=== PATIENT | male | born 1950 | race Caucasian/White ===

== ENCOUNTER 2016-07-07 12:40 | Inpatient (IN) | payer OTHER ==
[2016-07-07] MEDS ORDERED: IOPAMIDOL 370 (76%) IV.SOLN 150 ML IV ONE (12:41)
[2016-07-07 13:22] LABS: ABSOLUTE NEUTROPHIL COUNT 4.8 K/mm3 (1.8-7.7); BASO # 0.1 K/mm3 (0.0-0.2); BASO % 0.7 % (0.2-1.0); EOS # 0.2 (0.0-0.5); EOS % 2.8 % (0.9-2.9); HEMATOCRIT 47.7 % (32.0-52.0); HEMOGLOBIN 15.8 gm/l (14.0-18.0); IMM NEUT% 0.3 % (0-1); LYMPH # 1.8 (1.0-4.8); LYMPH % 24.1 % (15-45); MEAN CELL VOLUME 92.8 fl (80.0-94.0); MEAN CORPUSCULAR HEMOGLOBIN 30.7 pg (27.0-31.0); MEAN CORPUSCULAR HGB CONC 33.1 g/dl (33.0-37.0); MEAN PLATELET VOLUME 9.2 fl (7.4-10.4); MONO # 0.7 (0.0-0.8); MONO % 8.9 % (4-12); NEUT % 63.2 % (43-75); PLATELET COUNT 365 K/mm3 (130-400); RED CELL DISTRIBUTION WIDTH 12.5 % (11.5-14.5)
[2016-07-07] MEDS ORDERED: HYDROMORPHONE HCL 1 MG/ML SYRINGE ONE ×2 (13:27→15:15)
[2016-07-07] MEDS ORDERED: ONDANSETRON 4 MG/2ML 2 ML VIAL ONE (13:27)
[2016-07-07 13:32] LABS: ALB/GLOB RATIO 0.9 (>1.0); ALBUMIN 3.6 gm/dL (3.5-5.7); CALCIUM 9.8 mg/dL (8.6-10.3)
[2016-07-07] MEDS ORDERED: METOCLOPRAMIDE HCL 5 MG/ML 2ML VIAL ONE (13:57)
--- NOTE | 2016-07-07 14:39 | CT ---
Exam: CT abdomen and pelvis with contrast COMPARISON: None INDICATION: Diffuse abdominal pain radiating bilaterally to the back with abdominal distention since 6:00 am. TECHNIQUE: CT examination of the abdomen and pelvis was obtained following the administration of 125 mL Isovue-370 intravenous contrast. Findings: Stomach is markedly distended, and there is a small amount of fluid within the distal esophagus reflecting either reflux or stasis. There are dilated loops of small bowel which measure up to 3.8 cm. The discrete transition point is not identified although the mid to distal ileum is relatively decompressed. There is no pneumatosis or portal venous gas. There is no free air or free intraperitoneal fluid. Moderate amount of well-formed stool seen within the colon. There is mild colonic diverticulosis without evidence of diverticulitis. The appendix is normal. Urinary bladder unremarkable. There is no pelvic lymphadenopathy or fluid collection. There is occlusion/complete thrombus formation within the abdominal aorta starting just below level the renal arteries. There is a bilobed infrarenal abdominal aortic aneurysm which measures up to 3.7 cm in diameter. The bilateral common iliac arteries are heavily calcified and diminutive in size reflecting the chronic occlusion. There is reconstitution of flow at the level of the common femoral arteries bilaterally, although dense atheromatous plaques are noted. Gallbladder is present and within normal limits. The liver, spleen, pancreas and adrenal glands are unremarkable. There is a subcentimeter low-density lesion in the upper pole of the left kidney which is too small to characterize but is statistically likely to reflect a cyst. Kidneys otherwise unremarkable and there is no hydronephrosis. There is a 10 mm nodule within the right lung base which is of uncertain chronicity given lack of comparisons. Mild dependent atelectasis is seen within the left lung base and there is minor scarring within the right middle lobe. There is no pleural effusion. No worrisome lytic or blastic osseous lesion is identified. Focally prominent degenerative disc disease is noted at L4-5. IMPRESSION: 1. Developing or partial small bowel obstruction, with marked distention of the stomach and proximal small bowel measuring up to 3.8 cm. Discrete transition point is not seen and etiology of the obstruction is uncertain. There is no free air or free fluid. 2. Chronic occlusion/thrombus formation of the abdominal aorta below level the renal arteries. There is reconstitution of flow at the level of the common femoral arteries. 3. 10 mm nodule within the right lower lobe which is of uncertain chronicity given lack of comparisons. Recommend nonemergent unenhanced CT examination of the chest to evaluate for additional nodules which will determine follow-up interval. Findings were discussed with Dr. Walton 1436 hours 07/07/2016.
[2016-07-07] MEDS ORDERED: LIDOCAINE 2% UROJECT 10 ML ONE (15:13)
[2016-07-07] MEDS ORDERED: SODIUM CHLORIDE 0.9% 1,000 ML ONE (17:21)
[2016-07-07] MEDS ORDERED: PUMP TUBING ONE (17:21)
[2016-07-07 17:33] VITALS: BMI 23.4
[2016-07-07] MEDS ORDERED: SODIUM CHLORIDE 0.9% 1,000 ML IV SCH (17:35)
[2016-07-07] MEDS ORDERED: ONDANSETRON 4 MG/2ML 2 ML VIAL IV PRN ×2 (18:19→19:30)
[2016-07-07] MEDS: HYDROMORPHONE HCL 1 MG/ML SYRINGE IV PRN ×3 (18:23→22:55)
[2016-07-07] MEDS ORDERED: BLISTEX LIPSTICK 1 EACH TP PRN (19:15)
[2016-07-07] MEDS ORDERED: BISACODYL 10 MG SUP PR PRN (19:15)
[2016-07-07] MEDS ORDERED: HYDROMORPHONE HCL 1 MG/ML SYRINGE IV PRN (19:30)
[2016-07-07] MEDS: MENTHOL/CETYLPYRD 1 EACH LOZENGE PO PRN (20:16)
[2016-07-07] MEDS: ENOXAPARIN SODIUM 40 MG/0.4 ML SYRINGE SUB-Q SCH (20:17)
[2016-07-07 20:32] LABS: SPECIFIC GRAVITY 1.015 (1.001-1.030); URINE BILIRUBIN NEGATIVE (NEGATIVE); URINE BLOOD NEGATIVE (NEGATIVE); URINE GLUCOSE (UA) NEGATIVE (NEGATIVE); URINE LEUKOCYTE ESTERASE NEGATIVE (NEGATIVE); URINE NITRITE NEGATIVE (NEGATIVE); URINE PROTEIN 3+ (NEGATIVE); URINE UROBILINOGEN NORMAL (0-1 mg/dl)
[2016-07-07] MEDS: ALBUTEROL/IPRATROPIUM 2.5/0.5 MG 3 ML/EACH DOSE NEB SCH (20:33)
[2016-07-07 20:34] LABS: URINE APPEARANCE CLEAR; URINE COLOR AMBER
[2016-07-07 20:40] LABS: URINE EPITHELIAL CELLS 0-1 /hpf
[2016-07-07 20:41] LABS: URINE BACTERIA FEW
[2016-07-07] MEDS: NICOTINE POLACRILEX 2 MG LOZENGE PO PRN (21:33)
[2016-07-07] MEDS: PANTOPRAZOLE SODIUM 40 MG VIAL IV SCH (21:34)
[2016-07-07] MEDS: BENZOCAINE PO PRN (21:38)
[2016-07-07] MEDS: BUTAMBEN PO PRN (21:38)
[2016-07-07] MEDS: TETRACAINE PO PRN (21:38)
[2016-07-07] MEDS: BOT PO PRN (21:38)
[2016-07-08] MEDS: SODIUM CHLORIDE 0.9% 1,000 ML IV SCH ×5 (00:33→17:02)
[2016-07-08] MEDS: NICOTINE POLACRILEX 2 MG LOZENGE PO PRN ×4 (01:31→21:20)
[2016-07-08] MEDS: MENTHOL/CETYLPYRD 1 EACH LOZENGE PO PRN ×6 (01:32→17:45)
[2016-07-08] MEDS: HYDROMORPHONE HCL 1 MG/ML SYRINGE IV PRN ×2 (01:39→02:02)
[2016-07-08] MEDS: BUTAMBEN PO PRN ×4 (04:08→17:49)
[2016-07-08] MEDS: BOT PO PRN ×4 (04:08→17:49)
[2016-07-08] MEDS: BENZOCAINE PO PRN ×4 (04:08→17:49)
[2016-07-08] MEDS: TETRACAINE PO PRN ×4 (04:08→17:49)
[2016-07-08] MEDS: HYDROMORPHONE HCL 2 MG/ML SYRINGE IV PRN ×5 (05:34→17:45)
--- NOTE | 2016-07-08 06:25 | HP ---
Luke Lopez ADMIT DATE: 07/07/2016 CHIEF COMPLAINT: Abdominal distention. HISTORY OF PRESENT ILLNESS: Luke is a 66-year-old homeless male. He apparently was in the hospital up at [facility] for close to a month by his report. He was just discharged from there within the last week and was sent to [facility]. He was apparently stable there for the next couple of days, however, today he had onset of abdominal distention and pain. He was brought to the emergency room and in the emergency room he was worked up and found to have evidence of an early small bowel obstruction. He has not had this in the past. He has had no recent surgeries. No fevers, no chills, no headache, no visual disturbance. No difficulty swallowing. No chest pain. He does feel short of breath all the time. He feels like he is about at his baseline. No new extremity weakness, numbness, tingling, or swelling. PAST MEDICAL HISTORY: Largely unknown. He has never been seen here at our facility. I have minimal records from [facility]. They indicate that he has the followin. Chronic obstructive pulmonary disease. 2. Atrial fibrillation. 3. History of cerebrovascular accidents, not otherwise specified. 4. Chronic abdominal aortic aneurysm. 5. 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 6. Chronic left and right foot ulcerations. 7. Chronic low back pain. 8. Coronary artery disease. 9. Diabetes. PAST SURGICAL HISTORY: He tells me he has had cataracts, some type of a nose surgery, neck surgeries four years ago or so, and angiogram in the last couple of years. ALLERGIES: PENICILLIN. CURRENT MEDICATIONS: Unknown. SOCIAL HISTORY: He is normally homeless and stays in the [facility]. He does have a daughter in [place] and he is very evasive when I ask about her. I do not know the nature of their relationship. He has been four times. He drinks alcohol daily at a baseline, though he has had none since he was admitted to the hospital over a month ago at [facility]. No history of withdraw. He does have a 50 to 70 pack year history of smoking and does continue to smoke. FAMILY HISTORY: Unknown as he is adopted. OBJECTIVE: VITAL SIGNS: Temperature 98.0, pulse 90, blood pressure 184/94, respirations 17, O2 sat 94% on 4 liters. GENERAL: This is a dishelved appearing elderly male. He is alert and calm. He is in no acute distress. HEENT: Normocephalic, atraumatic. Tympanic membranes are clear. Nasogastric tube is in place. Orophyarnx with poor dentition. NECK: Supple. No jugular venous distention. LUNGS: He has distant sounds, but no wheezes, rales, or rhonchi. He does have some loose upper respiratory tones. HEART: Regular rate and rhythm. ABDOMEN: Moderately distended. He does not really have any tenderness to palpation. Bowel tones are quiet. No rebound or guarding. EXTREMITIES: Trace edema of the bilateral lower extremities. LABORATORY: CBC with a white count of 7.6, hemoglobin 15.8, hematocrit 47.7, platelets 365. Chemistry panel, sodium of 138, potassium 4.4, chloride 99, carbon dioxide 32, BUN 14, creatinine 0.8, glucose 141. Total bilirubin is 0.3, AST 15, ALT 17, alk phos 74, lipase of 10. Urinalysis is pending. DIAGNOSTICS: Abdominal and pelvis CT scan performed in the emergency room shows clear lung bases. He does have evidence of a small bowel obstruction with distention of the stomach and proximal small bowel, no free air or fluid, chronic abdominal aortic aneurysm is noted. ASSESSMENT: 1. Partial small bowel obstruction, acute. 2. Multiple other medical problems including baseline chronic obstructive pulmonary disease, atrial fibrillation, chronic aortic aneurysm, coronary artery disease, and diabetes. PLAN: He is admitted to the floor. Nasogastric tube has already been placed, we will continue this on low intermittent suction. We will continue him on supportive care otherwise with IV fluid, etc. We will attempt to get further records from [facility] and fill out his history as well as his medication list from [facility]. Further care is dictated by clinical course. JOB: [id number]
[2016-07-08] MEDS: ALBUTEROL NEB 2.5 MG/3 ML VIAL.NEB NEB PRN (06:27)
[2016-07-08 06:48] LABS: ABSOLUTE NEUTROPHIL COUNT 4.1 K/mm3 (1.8-7.7); BASO # 0.1 K/mm3 (0.0-0.2); BASO % 0.7 % (0.2-1.0); EOS # 0.3 (0.0-0.5); EOS % 4.7 % (0.9-2.9); HEMOGLOBIN 14.2 gm/l (14.0-18.0); IMM NEUT% 0.1 % (0-1); LYMPH # 1.6 (1.0-4.8); LYMPH % 23.4 % (15-45); MEAN CELL VOLUME 93.9 fl (80.0-94.0); MEAN PLATELET VOLUME 8.9 fl (7.4-10.4); MONO # 0.8 (0.0-0.8); MONO % 11.1 % (4-12); PLATELET COUNT 276 K/mm3 (130-400); RED CELL DISTRIBUTION WIDTH 12.7 % (11.5-14.5)
[2016-07-08 07:06] LABS: ALB/GLOB RATIO 1.1 (>1.0); ALBUMIN 3.1 gm/dL (3.5-5.7); CALCIUM 8.6 mg/dL (8.6-10.3)
--- NOTE | 2016-07-08 08:46 | RAD ---
ABDOMEN FLAT AND UPRIGHT HISTORY: Small bowel obstruction. COMPARISONS: CT examination of 07/07/2016. FINDINGS: Supine and upright views of the abdomen were obtained demonstrating air scattered throughout large and small bowel without significant dilatation. The abdominal bowel gas pattern is currently nonspecific. No definite findings of free intraperitoneal air are observed. There appears to be an indwelling nasogastric tube with the tip projecting at the level of the diaphragmatic contour, likely at the gastroesophageal junction. There are severe lumbar degenerative changes noted. Contrast is seen within the bladder from the prior CT examination. IMPRESSION: 1. A current nonspecific abdominal bowel gas pattern. No findings of free intraperitoneal air is observed. 2. An indwelling nasogastric tube with tip projecting at the expected location of the gastroesophageal junction. 3. Lumbar discogenic degenerative changes. 4. Contrast within the bladder from prior CT examination.
[2016-07-08] MEDS: ALBUTEROL/IPRATROPIUM 2.5/0.5 MG 3 ML/EACH DOSE NEB SCH ×4 (08:53→20:32)
[2016-07-08] MEDS: METOPROLOL TARTRATE 1 MG/ML 5ML VIAL IV SCH ×2 (12:01→17:37)
--- NOTE | 2016-07-08 13:21 | PDOC43 ---
- Subjective Chief Complaint: Abd Distension, SOB More SOB this AM. Abd better. Subjective: Reports Pain Tolerable, Reports Flatus, Denies Bowel Movement, Denies Chest Pain, Denies Abdominal Pain, Denies Nausea, Denies Vomiting, Denies Fever, Denies Chills - Objective Vital Signs Temperature 97.7 F 07/08/16 11:58 Pulse Rate 84 07/08/16 11:58 Respiratory Rate 16 07/08/16 11:58 Blood Pressure 155/69 07/08/16 11:58 O2 Saturation by Pulse Oximetry 90 07/08/16 11:58 Oxygen Delivery Method Nasal Cannula Oxygen Flow Rate 5 Intake and Output 07/07/16 07/08/16 07/09/16 06:59 06:59 06:59 Intake Total 1534 Output Total 1075 Balance 459 Tubes/Drains Output: Tubes and Drains Output NG/OG Output 125 General: Alert, Oriented x3, Cooperative, No Acute Distress HEENT: Atraumatic Lungs: Other (Coarse sounds all romero B. Poor air movement noted.) Cardiovascular: Regular Rate and Rhythm Abdomen: Firm, Hypoactive Bowel Sounds, Mild Distention, No Rebounding, No Involuntary Guarding Extremities: Normal Pulses Wound: Other (Multiple shallow wounds/abrasions/ulcers to dorsum of B feet/ toes. No evidence of infection.) Laboratory 07/08/16 06:15 07/08/16 06:15 Current Medications: Current meds reviewed in EMR. - Problems: Assessment/Plan (1) SBO (small bowel obstruction) Status: AcuteAssessment/Plan: Improved this AM. Less NGT output- will clamp. Some flatus. No pain. No N/V. Repeat films in AM. (2) COPD (chronic obstructive pulmonary disease) Qualifiers: COPD type: unspecified COPD Qualifier Code: (J44.9) Chronic obstructive pulmonary disease, unspecified Status: AcuteAssessment/Plan: Increased O2 requirement and subjective SOB this AM. Exam c/w COPD exacerbation. Will check CXR, start steroids and azithro and con't nebs. (3) SVT (supraventricular tachycardia) Status: AcuteAssessment/Plan: Asymptomatic run of SVT this AM. Will tx with IV metoprolol and follow. Echo done at last month with nl EF and no WMA's by report. (4) Abrasion of foot without infection Status: ChronicAssessment/Plan: Wound care. (5) HTN (hypertension) Qualifiers: Hypertension type: essential hypertension Qualifier Code: (I10) Essential (primary) hypertension Status: ChronicAssessment/Plan: Metoprolol as above. (6) AAA (abdominal aortic aneurysm) Qualifiers: Presence of rupture: without rupture Qualifier Code: (I71.4) Abdominal aortic aneurysm, without rupture Status: ChronicAssessment/Plan: Chronic at baseline. (7) Chronic low back pain Qualifiers: Back pain laterality: unspecified Sciatica presence: unspecified whether sciatica present Qualifier Code: (M54.5) Low back pain Status: ChronicAssessment/Plan: Chronic pain at baseline. Con't with IV dilaudid until able to resume usual po regimen. (8) ETOHism Status: ChronicAssessment/Plan: In remission since admit to last month. VTE Prophylaxis: Lovenox. Disposition: Unknown. Pt is homeless and most likely won't qualify for SNF.
[2016-07-08] MEDS: METHYLPRED SOD SUCCINATE 40 MG VIAL IV SCH ×2 (13:56→19:27)
[2016-07-08] MEDS: AZITHROMYCIN 500 MG in SODIUM CHLORIDE 0.9% 250 ML IV SCH (14:07)
--- NOTE | 2016-07-08 14:08 | RAD ---
CHEST-AP BEDSIDE COMPARISON: None HISTORY: Hypoxia. FINDINGS: Views: Frontal chest. Lungs: The lungs are clear. Heart and vessels: Normal Trachea and bronchi: Normal Mediastinum and sophia: Normal Costophrenic sulci: Normal Chest wall and bones: Normal Upper abdomen: Normal. Support equipment: NG tube terminates of the left hemidiaphragm. IMPRESSION: Negative one view chest.
[2016-07-08] MEDS ORDERED: PUMP TUBING ONE (14:14)
[2016-07-08] MEDS ORDERED: CALCIUM CARBONATE 500 MG TAB.CHEW PO PRN (18:20)
[2016-07-08] MEDS ORDERED: ALBUTEROL NEB 2.5 MG/3 ML VIAL.NEB NEB PRN (18:20)
[2016-07-08] MEDS ORDERED: SIMETHICONE 80 MG TAB.CHEW PO PRN (18:20)
[2016-07-08] MEDS ORDERED: IV START KIT ONE ×2 (18:27→21:31)
[2016-07-08] MEDS ORDERED: IOPAMIDOL 370 (76%) 100 ML VIAL IV ONE (19:06)
[2016-07-08] MEDS: ENOXAPARIN SODIUM 40 MG/0.4 ML SYRINGE SUB-Q SCH (19:27)
--- NOTE | 2016-07-08 19:34 | CT ---
EXAMINATION: CT angiography of the thorax.CTA CHEST FOR PE INDICATION: Hypoxemia COMPARISON: None. TECHNIQUE: Helical scan mode CT of the Thorax after uneventful intravenous contrast administration of 80 ml of Isovue-370. Imaging device: [employer] multidetector CT scan. Helically acquired stacked images were reviewed in the axial, sagittal and coronal planes. Additional 3-D postprocessing was performed and reconstructed images were acquired at the [employer] workstation and reviewed as well. FINDINGS: The bolus is of good quality for diagnosis of pulmonary embolism. There is a small focal pulmonary arterial thrombus within the posterior basilar segment of the right lower lobe. The remainder of the pulmonary arteries appear well-opacified. No large occluded segments are detected. After chronic plaquing of the thoracic aorta is noted. There is ectasia with no aneurysmal dilatation or evidence of dissection. Cardiomegaly is evident. There are coronary vascular calcifications. There is no pericardial effusion. The lung parenchyma: There is extensive groundglass opacity with a mosaic appearance within the upper and lower lobes bilaterally. There is inter and intralobular septal thickening with basilar atelectasis. In the right lower lobe anteriorly there is a 1 cm stellate nodule. There are also foci of consolidation/atelectasis within the lung bases as well. Scattered emphysematous changes are noted. Pleural effusion: No significant pleural effusion is identified.: Mediastinum: There is prominent disseminated mediastinal adenopathy. There is a left prominent lymph node measuring 1.6 cm in the paratracheal distribution. There is an AP window lymph node with a short axis dimension of 1.0 cm. There are left hilar lymph nodes with short axis dimension 1.3 cm. Right hilar adenopathy is noted with multiple lymph nodes exhibiting short axis dimensions of greater than 1 cm. No signal in subcarinal adenopathy is identified. Osseus structures: No gross lytic or blastic lesions. Soft tissues: within normal limits Limited evaluation of the abdomen on this arterial phase injection reveals: No acute obstructive or inflammatory changes are identified visualized segments. There is an infrarenal abdominal aortic aneurysm measuring 3.3 cm in AP dimension. There is layering attenuation within the gallbladder raising the question of cholelithiasis. Diverticulosis of the colon is noted. IMPRESSION: Constellation of abnormal nonspecific findings. 1. Small pulmonary embolus posterior basilar segment right lower lobe. 2. Findings which appear to reflect cardiogenic pulmonary edema. Other entities that can give a similar appearance would include interstitial pneumonia, ARDS and pulmonary hemorrhage. There is also apparent basilar atelectasis. 3. Nonspecific mediastinal lymphadenopathy. This raises the question of underlying neoplasm and/or infectious etiology. Other entities that may need to be considered would include sarcoidosis. 4. 9 mm nodular density right lower lung zone. A repeat CT scan following clearing of the above infiltrates is recommended. 5. Atherosclerosis. There is an infrarenal abdominal aortic aneurysm. 6. Cholelithiasis without evidence of gross cholecystitis or biliary obstruction. The findings were uploaded to the electronic medical record for review at approximately 7:35 PM 07/08/2016
[2016-07-08] MEDS ORDERED: TIOTROPIUM BROMIDE 18 MCG IH SCH (20:00)
[2016-07-08] MEDS ORDERED: ENOXAPARIN SODIUM 150 MG/ML SYRINGE SUB-Q SCH (20:15)
[2016-07-08] MEDS ORDERED: ENOXAPARIN SODIUM 100 MG/ML SYRINGE SUB-Q ONE (20:30)
[2016-07-08] MEDS ORDERED: FUROSEMIDE 40 MG/4 ML VIAL IV ONE (20:34)
[2016-07-08] MEDS: PANTOPRAZOLE SODIUM 40 MG VIAL IV SCH (21:18)
[2016-07-08] MEDS: GUAIFENESIN 600 MG TABLET.DR PO SCH (21:18)
[2016-07-08] MEDS: LOVASTATIN 20 MG TABLET PO SCH (21:19)
[2016-07-08] MEDS: LORAZEPAM 0.5 MG TABLET PO PRN (21:19)
[2016-07-08] MEDS: HYDROCODONE/ACETAMINOPHEN 5/325MG TABLET PO PRN (21:19)
[2016-07-08] MEDS: SENNA/DOCUSATE SODIUM 8.6/50 MG EACH TABLET PO SCH (21:19)
[2016-07-08] MEDS: BENZONATATE 100 MG CAPSULE PO SCH (21:20)
[2016-07-08] MEDS: NICOTINE 14 MG PATCH 1 EACH TD SCH (21:20)
[2016-07-08] MEDS: ASPIRIN (UNCOATED) 325 MG TABLET PO SCH (21:20)
[2016-07-08] MEDS ORDERED: SODIUM CHLORIDE 0.9% FLUSH 10 ML ONE (21:30)
[2016-07-08] MEDS: METOPROLOL TARTRATE 25 MG TABLET PO SCH (23:43)
[2016-07-08] MEDS: TIOTROPIUM BROMIDE 18 MCG 5 CAP/INHALER IH SCH (23:44)
[2016-07-09] MEDS: METHYLPRED SOD SUCCINATE 40 MG VIAL IV SCH ×4 (01:21→21:01)
[2016-07-09 06:14] LABS: HEMATOCRIT 43.2 % (32.0-52.0); HEMOGLOBIN 13.7 gm/l (14.0-18.0); MEAN CORPUSCULAR HEMOGLOBIN 30.4 pg (27.0-31.0); MEAN CORPUSCULAR HGB CONC 31.7 g/dl (33.0-37.0); RED CELL DISTRIBUTION WIDTH 12.3 % (11.5-14.5)
[2016-07-09 06:34] LABS: CALCIUM 8.6 mg/dL (8.6-10.3)
[2016-07-09] MEDS: HYDROCODONE/ACETAMINOPHEN 5/325MG TABLET PO PRN ×3 (08:26→21:02)
[2016-07-09] MEDS: BENZONATATE 100 MG CAPSULE PO SCH ×3 (08:27→21:01)
[2016-07-09] MEDS: METOPROLOL TARTRATE 25 MG TABLET PO SCH ×2 (08:27→21:02)
[2016-07-09] MEDS: SENNA/DOCUSATE SODIUM 8.6/50 MG EACH TABLET PO SCH ×2 (08:27→21:02)
[2016-07-09] MEDS: GUAIFENESIN 600 MG TABLET.DR PO SCH ×2 (08:27→21:02)
[2016-07-09] MEDS: AMLODIPINE BESYLATE 5 MG TABLET PO SCH (08:27)
[2016-07-09] MEDS: LORATADINE 10 MG TABLET PO SCH (08:27)
[2016-07-09] MEDS: ASPIRIN (UNCOATED) 325 MG TABLET PO SCH ×2 (08:27→21:02)
[2016-07-09] MEDS: NICOTINE 14 MG PATCH 1 EACH TD SCH (08:28)
[2016-07-09] MEDS: POLYETHYLENE GLYCOL 3350 17 G POWD.SUSP PO SCH (08:28)
[2016-07-09] MEDS: ALBUTEROL/IPRATROPIUM 2.5/0.5 MG 3 ML/EACH DOSE NEB SCH ×4 (08:52→20:29)
[2016-07-09] MEDS ORDERED: SENNA/DOCUSATE SODIUM 8.6/50 MG EACH TABLET PO SCH (09:00)
[2016-07-09] MEDS: TIOTROPIUM BROMIDE 18 MCG 5 CAP/INHALER IH SCH (09:20)
--- NOTE | 2016-07-09 09:41 | PDOC43 ---
- Subjective Chief Complaint: Abd Distension, SOB Tolerating clears and bowels have moved, no abdominal pain. Had increasing O2 requirement 3/ and chest CT positive for PE as well as adenopathy and possible pulmonary edema feeling better today after furosemide given IV last p.m. Last ECHO was in 2012. - Objective Vital Signs Temperature 97.8 F 07/09/16 07:27 Pulse Rate 78 07/09/16 07:27 Respiratory Rate 20 07/09/16 07:27 Blood Pressure 158/72 07/09/16 07:27 O2 Saturation by Pulse Oximetry 91 07/09/16 07:27 Oxygen Delivery Method Nasal Cannula Oxygen Flow Rate 4 Intake and Output 07/08/16 07/09/16 07/10/16 06:59 06:59 06:59 Intake Total 1534 100 Output Total 1075 2415 Balance 459 -2315 Tubes/Drains Output: Tubes and Drains Output NG/OG Output 25 NG/OG Output 40 General: Alert, Oriented x3, Cooperative, No Acute Distress HEENT: Mucous membr. moist/pink Lungs: Other (poor air movement, decreased at bases, exp wheezes) Cardiovascular: Regular Rate and Rhythm Abdomen: Soft, Normal Bowel Sounds, No Tenderness, No Masses Extremities: Edema (trace bilateral), Pulses Diminished but Palpable Skin: Normal Color Neurological: Normal Speech Psych/Mental Status: Normal Mood Laboratory 07/09/16 05:30 07/09/16 05:30 07/09/16 07/08/16 07/08/16 05:30 17:31 12:11 RBC 4.50 L MCV 96.0 H MCHC 31.7 L POC Capillary Glucose 149 H 115 H Current Medications: Current meds reviewed in EMR. - Problems: Assessment/Plan (1) SBO (small bowel obstruction) Status: AcuteAssessment/Plan: Resolved, advance diet. (2) COPD (chronic obstructive pulmonary disease) Qualifiers: COPD type: unspecified COPD Qualifier Code: (J44.9) Chronic obstructive pulmonary disease, unspecified Status: AcuteAssessment/Plan: Increased O2 requirement and subjective SOB /3, started steroids and azithromycin on 07/08. (3) SVT (supraventricular tachycardia) Status: AcuteAssessment/Plan: Asymptomatic run of SVT 07/08 a.m. No recurrence on B-irene. (4) HTN (hypertension) Qualifiers: Hypertension type: essential hypertension Qualifier Code: (I10) Essential (primary) hypertension Status: ChronicAssessment/Plan: Moderate control, increase metoprolol. (5) AAA (abdominal aortic aneurysm) Qualifiers: Presence of rupture: without rupture Qualifier Code: (I71.4) Abdominal aortic aneurysm, without rupture Status: ChronicAssessment/Plan: Chronic with occlusion and collateral circulation, at baseline. (6) Chronic low back pain Qualifiers: Back pain laterality: unspecified Sciatica presence: unspecified whether sciatica present Qualifier Code: (M54.5) Low back pain Status: ChronicAssessment/Plan: Chronic pain at baseline. Back on PO hydrocodone and bowel regimen to prevent constipation/obstruction. (7) ETOHism Status: ChronicAssessment/Plan: In remission since admit to last month. (8) CHF (congestive heart failure) Qualifiers: Congestive heart failure type: diastolic Congestive heart failure chronicity: acute on chronic Qualifier Code: (I50.33) Acute on chronic diastolic (congestive) heart failure Status: AcuteAssessment/Plan: Last ECHO in record from 2012 with preserved EF but appears to have acute exacerbation. Treat with diuretics and check ECHO for development of systolic component. (9) Pulmonary embolism Qualifiers: Pulmonary embolism type: other Chronicity: acute Acute cor pulmonale presence: with acute cor pulmonale Qualifier Code: (I26.09) Other pulmonary embolism with acute cor pulmonale Status: AcuteAssessment/Plan: Small PE on chest CTA. May have acute cor pulmonale contributing to acute increase in O2 requirement but could also be COPD and systolic heart failure exacerbation. Enoxaparin started 07/08, Warfarin started 07/09. (10) Anemia Status: AcuteAssessment/Plan: Mild, dilutional. (11) Hyperglycemia Status: AcuteAssessment/Plan: Steroid effect vs. unrecognized DM, check A1c, continue CBGs. VTE Prophylaxis: Treatment dose enoxaparin and start warfarin. Disposition: Will be in hospital through Monday for ECHO, Likely return to SNF.
[2016-07-09] MEDS ORDERED: PUMP TUBING ONE (13:23)
[2016-07-09] MEDS: AZITHROMYCIN 500 MG in SODIUM CHLORIDE 0.9% 250 ML IV SCH (13:36)
[2016-07-09] MEDS: INSULIN ASPART (DOSE) 100 UNITS/1 ML SUB-Q PRN ×3 (13:36→21:25)
[2016-07-09] MEDS: SODIUM CHLORIDE 0.9% 100 ML IV PRN (13:37)
[2016-07-09] MEDS: FUROSEMIDE 20 MG TABLET PO SCH (15:07)
[2016-07-09] MEDS ORDERED: WARFARIN PER PHARMACY 1 EACH DOSE PO SCH (16:00)
[2016-07-09 16:09] LABS: INR 0.98; PROTHROMBIN TIME 10.3 SECONDS (9.3-11.4)
[2016-07-09] MEDS ORDERED: WARFARIN SODIUM 2.5 MG TABLET PO ONE (16:16)
[2016-07-09] MEDS: ACETAMINOPHEN 325 MG TABLET PO PRN (19:07)
[2016-07-09] MEDS ORDERED: REMOVE PATCH 1 EACH UNIT TD SCH (19:30)
[2016-07-09] MEDS: POTASSIUM CHLORIDE 20 MEQ TAB.PRT.SR PO SCH (21:02)
[2016-07-09] MEDS: LOVASTATIN 20 MG TABLET PO SCH (21:02)
[2016-07-09] MEDS: ENOXAPARIN SODIUM 150 MG/ML SYRINGE SUB-Q SCH (21:15)
[2016-07-10] MEDS: ALBUTEROL/IPRATROPIUM 2.5/0.5 MG 3 ML/EACH DOSE NEB SCH ×5 (00:05→20:30)
[2016-07-10] MEDS: LORAZEPAM 0.5 MG TABLET PO PRN ×2 (01:06→22:21)
[2016-07-10] MEDS: HYDROCODONE/ACETAMINOPHEN 5/325MG TABLET PO PRN ×3 (01:07→13:39)
[2016-07-10] MEDS: NICOTINE POLACRILEX 2 MG LOZENGE PO PRN ×4 (01:07→20:25)
[2016-07-10] MEDS: ACETAMINOPHEN 325 MG TABLET PO PRN (06:08)
[2016-07-10 06:25] LABS: PROTHROMBIN TIME 10.5 SECONDS (9.3-11.4)
[2016-07-10 07:21] LABS: CALCIUM 8.7 mg/dL (8.6-10.3)
[2016-07-10] MEDS: INSULIN ASPART (DOSE) 100 UNITS/1 ML SUB-Q PRN ×4 (08:59→20:07)
[2016-07-10] MEDS: PREDNISONE 20 MG TABLET PO SCH (10:08)
[2016-07-10] MEDS: ASPIRIN (UNCOATED) 325 MG TABLET PO SCH ×2 (10:08→20:08)
[2016-07-10] MEDS: AMLODIPINE BESYLATE 5 MG TABLET PO SCH (10:08)
[2016-07-10] MEDS: POLYETHYLENE GLYCOL 3350 17 G POWD.SUSP PO SCH (10:08)
[2016-07-10] MEDS: PANTOPRAZOLE 40 MG TABLET DR PO SCH (10:09)
[2016-07-10] MEDS: LORATADINE 10 MG TABLET PO SCH (10:09)
[2016-07-10] MEDS: BENZONATATE 100 MG CAPSULE PO SCH ×3 (10:09→20:08)
[2016-07-10] MEDS: SENNA/DOCUSATE SODIUM 8.6/50 MG EACH TABLET PO SCH ×2 (10:09→20:07)
[2016-07-10] MEDS: GUAIFENESIN 600 MG TABLET.DR PO SCH ×2 (10:09→20:08)
[2016-07-10] MEDS: METOPROLOL TARTRATE 25 MG TABLET PO SCH ×2 (10:10→20:08)
[2016-07-10] MEDS: NICOTINE 14 MG PATCH 1 EACH TD SCH (10:10)
[2016-07-10] MEDS: FUROSEMIDE 20 MG TABLET PO SCH ×2 (10:10→16:54)
[2016-07-10] MEDS: TIOTROPIUM BROMIDE 18 MCG 5 CAP/INHALER IH SCH (10:17)
--- NOTE | 2016-07-10 12:10 | PDOC43 ---
- Subjective Chief Complaint: Abd Distension, SOB Bowels moving well, tolerating full liquids and drinking lots of water. Still dyspnic but no chest pain. - Objective Vital Signs Temperature 97.0 F 07/10/16 11:38 Pulse Rate 71 07/10/16 11:38 Respiratory Rate 18 07/10/16 11:38 Blood Pressure 177/68 07/10/16 11:38 O2 Saturation by Pulse Oximetry 95 07/10/16 11:38 Oxygen Delivery Method Nasal Cannula Oxygen Flow Rate 3 Intake and Output 07/09/16 07/10/16 07/11/16 06:59 06:59 06:59 Intake Total 100 3089 Output Total 2415 1050 Balance -2315 9 General: Alert, Oriented x3, Cooperative, No Acute Distress HEENT: Mucous membr. moist/pink Lungs: Other (ronchi at bases bilaterally, poor air movement.) Cardiovascular: Regular Rate and Rhythm Abdomen: Soft, Normal Bowel Sounds, Mild Distention, No Tenderness, No Masses Extremities: Edema (trace), Normal Pulses Skin: Normal Color Neurological: Normal Speech Psych/Mental Status: Normal Mood Laboratory 07/09/16 05:30 07/10/16 05:45 07/10/16 07/10/16 07/09/16 07:54 05:45 21:19 Estimated GFR 114 H POC Capillary Glucose 221 H 265 H 07/09/16 07/09/16 16:34 12:52 Estimated GFR POC Capillary Glucose 295 H 259 H Current Medications: Current meds reviewed in EMR. - Problems: Assessment/Plan (1) CHF (congestive heart failure) Qualifiers: Congestive heart failure type: diastolic Congestive heart failure chronicity: acute on chronic Qualifier Code: (I50.33) Acute on chronic diastolic (congestive) heart failure Status: AcuteAssessment/Plan: Last ECHO in record from 2012 with preserved EF but appears to have acute exacerbation. Treat with diuretics and check ECHO for development of systolic component. Fluid restriction started 07/10. (2) Pulmonary embolism Qualifiers: Pulmonary embolism type: other Chronicity: acute Acute cor pulmonale presence: with acute cor pulmonale Qualifier Code: (I26.09) Other pulmonary embolism with acute cor pulmonale Status: AcuteAssessment/Plan: Small PE on chest CTA. May have acute cor pulmonale contributing to acute increase in O2 requirement but could also be COPD and systolic heart failure exacerbation. Enoxaparin started 07/08, Warfarin started 07/09. (3) SBO (small bowel obstruction) Status: AcuteAssessment/Plan: Resolved, advance to diabetic diet. (4) COPD (chronic obstructive pulmonary disease) Qualifiers: COPD type: unspecified COPD Qualifier Code: (J44.9) Chronic obstructive pulmonary disease, unspecified Status: AcuteAssessment/Plan: Increased O2 requirement and subjective SOB 07/08, started steroids and azithromycin on 07/08. (5) SVT (supraventricular tachycardia) Status: AcuteAssessment/Plan: Asymptomatic run of SVT 07/08 a.m. No recurrence on metoprolol. (6) HTN (hypertension) Qualifiers: Hypertension type: essential hypertension Qualifier Code: (I10) Essential (primary) hypertension Status: ChronicAssessment/Plan: Moderate control, increase metoprolol. (7) AAA (abdominal aortic aneurysm) Qualifiers: Presence of rupture: without rupture Qualifier Code: (I71.4) Abdominal aortic aneurysm, without rupture Status: ChronicAssessment/Plan: Chronic with occlusion and collateral circulation, at baseline. (8) Chronic low back pain Qualifiers: Back pain laterality: unspecified Sciatica presence: unspecified whether sciatica present Qualifier Code: (M54.5) Low back pain Status: ChronicAssessment/Plan: Chronic pain at baseline. Back on PO hydrocodone and bowel regimen to prevent constipation/obstruction. (9) ETOHism Status: ChronicAssessment/Plan: In remission since admit to last month. (10) Anemia Status: AcuteAssessment/Plan: Mild, dilutional. (11) Hyperglycemia Status: AcuteAssessment/Plan: Steroid effect vs. unrecognized DM, check A1c, continue CBGs. Add insulin with diabetic diet. VTE Prophylaxis: Treatment dose enoxaparin and warfarin. Disposition: Will be in hospital through Monday for ECHO, possible return to SNF vs. AFC.
[2016-07-10] MEDS: POTASSIUM CHLORIDE 20 MEQ TAB.PRT.SR PO SCH ×2 (12:52→20:08)
[2016-07-10] MEDS ORDERED: PUMP TUBING ONE (13:58)
[2016-07-10] MEDS: SODIUM CHLORIDE 0.9% 100 ML IV PRN (14:05)
[2016-07-10] MEDS: AZITHROMYCIN 500 MG in SODIUM CHLORIDE 0.9% 250 ML IV SCH (14:05)
[2016-07-10] MEDS ORDERED: WARFARIN SODIUM 2.5 MG TABLET PO ONE (16:00)
[2016-07-10] MEDS: INSULIN GLARGINE (DOSE) 100 UNITS/ML UNIT SUB-Q SCH (20:06)
[2016-07-10] MEDS: ENOXAPARIN SODIUM 150 MG/ML SYRINGE SUB-Q SCH (20:07)
[2016-07-10] MEDS: LOVASTATIN 20 MG TABLET PO SCH (20:08)
[2016-07-11] MEDS: HYDROCODONE/ACETAMINOPHEN 5/325MG TABLET PO PRN ×4 (01:43→18:06)
[2016-07-11] MEDS: ALBUTEROL NEB 2.5 MG/3 ML VIAL.NEB NEB PRN (03:51)
[2016-07-11] MEDS: NICOTINE POLACRILEX 2 MG LOZENGE PO PRN ×6 (04:38→20:15)
[2016-07-11 06:11] LABS: INR 1.09; PROTHROMBIN TIME 11.5 SECONDS (9.3-11.4)
[2016-07-11] MEDS: INSULIN ASPART (DOSE) 100 UNITS/1 ML SUB-Q PRN ×4 (08:05→21:31)
[2016-07-11] MEDS: POLYETHYLENE GLYCOL 3350 17 G POWD.SUSP PO SCH (08:54)
[2016-07-11] MEDS: AMLODIPINE BESYLATE 5 MG TABLET PO SCH (08:55)
[2016-07-11] MEDS: NICOTINE 14 MG PATCH 1 EACH TD SCH (08:55)
[2016-07-11] MEDS: BENZONATATE 100 MG CAPSULE PO SCH ×3 (08:55→20:06)
[2016-07-11] MEDS: PANTOPRAZOLE 40 MG TABLET DR PO SCH (08:55)
[2016-07-11] MEDS: GUAIFENESIN 600 MG TABLET.DR PO SCH ×2 (08:55→20:06)
[2016-07-11] MEDS: SENNA/DOCUSATE SODIUM 8.6/50 MG EACH TABLET PO SCH ×2 (08:56→21:42)
[2016-07-11] MEDS: POTASSIUM CHLORIDE 20 MEQ TAB.PRT.SR PO SCH ×2 (08:56→20:06)
[2016-07-11] MEDS: ASPIRIN (UNCOATED) 325 MG TABLET PO SCH (08:56)
[2016-07-11] MEDS: LORATADINE 10 MG TABLET PO SCH (08:56)
[2016-07-11] MEDS: PREDNISONE 20 MG TABLET PO SCH (08:56)
[2016-07-11] MEDS: FUROSEMIDE 20 MG TABLET PO SCH ×2 (08:57→16:00)
[2016-07-11] MEDS: METOPROLOL TARTRATE 25 MG TABLET PO SCH ×2 (08:57→20:06)
[2016-07-11] MEDS: REMOVE PATCH 1 EACH UNIT TD SCH (09:00)
[2016-07-11] MEDS: TIOTROPIUM BROMIDE 18 MCG 5 CAP/INHALER IH SCH (09:17)
[2016-07-11] MEDS: ALBUTEROL/IPRATROPIUM 2.5/0.5 MG 3 ML/EACH DOSE NEB SCH ×4 (09:55→20:23)
--- NOTE | 2016-07-11 10:20 | PDOC43 ---
- Subjective Chief Complaint: Abd Distension, SOB Reports dyspnea but also that breathing is better today. - Objective Vital Signs Temperature 97.7 F 07/11/16 07:33 Pulse Rate 76 07/11/16 07:33 Respiratory Rate 20 07/11/16 07:33 Blood Pressure 162/70 07/11/16 07:33 O2 Saturation by Pulse Oximetry 96 07/11/16 07:33 Oxygen Delivery Method Nasal Cannula Oxygen Flow Rate 2 Intake and Output 07/10/16 07/11/16 07/12/16 06:59 06:59 06:59 Intake Total 3089 2430 Output Total 1050 2975 Balance 9 -545 General: Alert, Oriented x3, Cooperative, No Acute Distress HEENT: Mucous membr. moist/pink Lungs: Diminished at Bases, Other (exp wheezes bilateral) Cardiovascular: Regular Rate and Rhythm Abdomen: Soft, Normal Bowel Sounds, No Tenderness, No Masses Extremities: Edema (trace), Pulses Diminished but Palpable Skin: Normal Color Neurological: Normal Speech Psych/Mental Status: Normal Mood Laboratory 07/09/16 05:30 07/10/16 05:45 07/11/16 07/11/16 07/10/16 07:54 05:30 19:51 PT 11.5 H POC Capillary Glucose 163 H 226 H 07/10/16 07/10/16 16:17 12:37 PT POC Capillary Glucose 317 H 259 H Current Medications: Current meds reviewed in EMR. - Problems: Assessment/Plan (1) CHF (congestive heart failure) Qualifiers: Congestive heart failure type: combined Congestive heart failure chronicity: acute on chronic Qualifier Code: (I50.43) Acute on chronic combined systolic (congestive) and diastolic (congestive) heart failure Status: AcuteAssessment/Plan: ECHO today demonstrates EF of 45% but incomplete exam. Clinically has combined syst/diast HF with acute on chronic exacerbation. Improving with diuresis and fluid restriction. Continue metoprolol and furosemide, add lisinopril. (2) Pulmonary embolism Qualifiers: Pulmonary embolism type: other Chronicity: acute Acute cor pulmonale presence: with acute cor pulmonale Qualifier Code: (I26.09) Other pulmonary embolism with acute cor pulmonale Status: AcuteAssessment/Plan: Small PE on chest CTA. May have acute cor pulmonale contributing to acute increase in O2 requirement but could also be COPD and systolic heart failure exacerbation. Enoxaparin started 07/08, Warfarin started 07/09. (3) SBO (small bowel obstruction) Status: AcuteAssessment/Plan: Cause of SBO present on admit is unknown but now resolved. Possibly due to hydrocodone treatment without adequate bowel care. Senna increased since admit, continue mirilax and docusate. (4) COPD (chronic obstructive pulmonary disease) Qualifiers: COPD type: unspecified COPD Qualifier Code: (J44.9) Chronic obstructive pulmonary disease, unspecified Status: AcuteAssessment/Plan: Increased O2 requirement and subjective SOB 07/08, started steroids and azithromycin on 07/08. Continue oral prednisone and nebs, titrate off O2. (5) SVT (supraventricular tachycardia) Status: AcuteAssessment/Plan: Asymptomatic run of SVT 07/08 a.m. No recurrence on metoprolol. (6) HTN (hypertension) Qualifiers: Hypertension type: essential hypertension Qualifier Code: (I10) Essential (primary) hypertension Status: ChronicAssessment/Plan: Moderate control on metoprolol, amlodipine, furosemide, add lisinopril. (7) AAA (abdominal aortic aneurysm) Qualifiers: Presence of rupture: without rupture Qualifier Code: (I71.4) Abdominal aortic aneurysm, without rupture Status: ChronicAssessment/Plan: Chronic with occlusion and collateral circulation, at baseline. (8) Chronic low back pain Qualifiers: Back pain laterality: unspecified Sciatica presence: unspecified whether sciatica present Qualifier Code: (M54.5) Low back pain Status: ChronicAssessment/Plan: Chronic pain at baseline. Back on PO hydrocodone and bowel regimen to prevent constipation/obstruction. (9) ETOHism Status: ChronicAssessment/Plan: In remission since admit to last month. (10) Anemia Status: AcuteAssessment/Plan: Mild, dilutional. (11) Hyperglycemia Status: AcuteAssessment/Plan: Steroid effect vs. unrecognized DM, check A1c, continue CBGs. Add insulin with diabetic diet. VTE Prophylaxis: Treatment dose enoxaparin and warfarin. Disposition: Possible return to SNF vs. AFC. Appears close to being stable for discharge but will need a PCP and close f/u for multiple new issues. Will need INR testing, f/u chest CT, determination if he can be managed with oral diabetic medication when off of prednisone.
[2016-07-11] MEDS: LISINOPRIL 10 MG TABLET PO SCH (15:59)
[2016-07-11] MEDS ORDERED: TIOTROPIUM BROMIDE 18 MCG 5 CAP/INHALER IH SCH (16:00)
[2016-07-11] MEDS ORDERED: WARFARIN SODIUM 5 MG TABLET PO SCH (16:00)
[2016-07-11] MEDS ORDERED: METOPROLOL TARTRATE 50 MG TABLET PO ONE (17:07)
[2016-07-11 18:02] LABS: A1C-GLYCOHEMOGLOBIN 0.8 g/dl
[2016-07-11] MEDS: ENOXAPARIN SODIUM 150 MG/ML SYRINGE SUB-Q SCH (20:06)
[2016-07-11] MEDS: LOVASTATIN 20 MG TABLET PO SCH (20:06)
[2016-07-11] MEDS: MENTHOL/CETYLPYRD 1 EACH LOZENGE PO PRN (20:15)
[2016-07-11] MEDS ORDERED: ASPIRIN (ENTERIC COATED) 325 MG TABLET.EC PO SCH (21:00)
[2016-07-11] MEDS: INSULIN GLARGINE (DOSE) 100 UNITS/ML UNIT SUB-Q SCH (21:31)
[2016-07-11] MEDS: LORAZEPAM 0.5 MG TABLET PO PRN (21:32)
[2016-07-12] MEDS: MENTHOL/CETYLPYRD 1 EACH LOZENGE PO PRN ×2 (00:33→21:18)
[2016-07-12] MEDS: HYDROCODONE/ACETAMINOPHEN 5/325MG TABLET PO PRN ×5 (00:33→21:18)
[2016-07-12] MEDS: NICOTINE POLACRILEX 2 MG LOZENGE PO PRN ×4 (00:33→21:18)
[2016-07-12] MEDS: ALBUTEROL NEB 2.5 MG/3 ML VIAL.NEB NEB PRN (02:35)
[2016-07-12 06:48] LABS: INR 1.35; PROTHROMBIN TIME 14.4 SECONDS (9.3-11.4)
[2016-07-12] MEDS: ALBUTEROL/IPRATROPIUM 2.5/0.5 MG 3 ML/EACH DOSE NEB SCH ×4 (07:45→20:04)
[2016-07-12] MEDS: GUAIFENESIN 600 MG TABLET.DR PO SCH ×2 (09:36→21:11)
[2016-07-12] MEDS: FUROSEMIDE 20 MG TABLET PO SCH ×2 (09:36→16:46)
[2016-07-12] MEDS: LORATADINE 10 MG TABLET PO SCH (09:36)
[2016-07-12] MEDS: PANTOPRAZOLE 40 MG TABLET DR PO SCH (09:37)
[2016-07-12] MEDS: BENZONATATE 100 MG CAPSULE PO SCH ×3 (09:37→21:11)
[2016-07-12] MEDS: METOPROLOL TARTRATE 25 MG TABLET PO SCH (09:37)
[2016-07-12] MEDS: PREDNISONE 20 MG TABLET PO SCH (09:37)
[2016-07-12] MEDS: LISINOPRIL 10 MG TABLET PO SCH (09:37)
[2016-07-12] MEDS: AMLODIPINE BESYLATE 5 MG TABLET PO SCH (09:37)
[2016-07-12] MEDS: POTASSIUM CHLORIDE 20 MEQ TAB.PRT.SR PO SCH ×2 (09:37→21:12)
[2016-07-12] MEDS: TIOTROPIUM BROMIDE 18 MCG 5 CAP/INHALER IH SCH (09:38)
[2016-07-12] MEDS: NICOTINE 14 MG PATCH 1 EACH TD SCH (09:38)
[2016-07-12] MEDS: POLYETHYLENE GLYCOL 3350 17 G POWD.SUSP PO SCH (09:45)
[2016-07-12] MEDS: INSULIN ASPART (DOSE) 100 UNITS/1 ML SUB-Q PRN ×2 (09:46→18:33)
[2016-07-12] MEDS: REMOVE PATCH 1 EACH UNIT TD SCH (09:46)
[2016-07-12] MEDS: SENNA/DOCUSATE SODIUM 8.6/50 MG EACH TABLET PO SCH ×2 (09:46→21:13)
--- NOTE | 2016-07-12 10:18 | PDOC43 ---
- Subjective Chief Complaint: Abd Distension, SOB Patient awake and alert, does not like his diet nor the fluid restriction. He will not go to a longterm or adult foster home, will return to his tent. He admits that he will not administer lovenox injections. He is unsure of about medication compliance upon discharge. He continues to feel short of breath, cough improving. The nebulizers offer him relief. Subjective: Reports Pain Tolerable, Reports Tolerating Diet Well, Reports Adequate Oral Intake, Reports Bowel Movement, Reports Urinating Without Difficulty, Reports Shortness of Breath, Reports Cough, Denies Chest Pain, Denies Abdominal Pain, Denies Nausea, Denies Vomiting - Objective Vital Signs Temperature 97.6 F 07/12/16 07:33 Pulse Rate 70 07/12/16 07:45 Respiratory Rate 18 07/12/16 07:45 Blood Pressure 158/74 07/12/16 07:33 O2 Saturation by Pulse Oximetry 94 07/12/16 07:45 Oxygen Delivery Method Nasal Cannula Oxygen Flow Rate 1 Intake and Output 07/10/16 07/11/16 07/12/16 23:59 23:59 23:59 Intake Total 2908 1495 400 Output Total 2250 3350 650 Balance 658 -1855 -250 General: Alert, Oriented x3, Cooperative, Other (disheveled), No Acute Distress HEENT: Atraumatic, PERRLA, EOMI, Mucous membr. moist/pink Lungs: Normal Air Movement, Other (coarse, no crackle or wheeze) Cardiovascular: Regular Rate and Rhythm, Normal S1, Normal S2 Abdomen: Soft, Mild Distention, No Rigid, No Tenderness, No Rebounding Extremities: No Cyanosis, No Edema, No Tenderness Peripheral Pulses: Radial (L): 2+, Radial (R): 2+ Neurological: Normal Speech Psych/Mental Status: Normal Mood Laboratory 07/09/16 05:30 07/10/16 05:45 07/12/16 07/12/16 07/11/16 07:23 05:30 21:24 PT 14.4 H POC Capillary Glucose 206 H 253 H Hemoglobin A1c 07/11/16 07/11/16 07/09/16 17:34 11:34 05:30 PT POC Capillary Glucose 176 H 156 H Hemoglobin A1c 7.3 H Current Medications: Current meds reviewed in EMR. - Problems: Assessment/Plan (1) CHF (congestive heart failure) Qualifiers: Congestive heart failure type: combined Congestive heart failure chronicity: acute on chronic Qualifier Code: (I50.43) Acute on chronic combined systolic (congestive) and diastolic (congestive) heart failure Status: AcuteAssessment/Plan: ECHO today demonstrates EF of 45% but incomplete exam. Clinically has combined syst/diast HF with acute on chronic exacerbation. Improving with diuresis and fluid restriction. Continue metoprolol and furosemide, add lisinopril. (2) Pulmonary embolism Qualifiers: Pulmonary embolism type: other Chronicity: acute Acute cor pulmonale presence: with acute cor pulmonale Qualifier Code: (I26.09) Other pulmonary embolism with acute cor pulmonale Status: AcuteAssessment/Plan: Small PE on chest CTA. May have acute cor pulmonale contributing to acute increase in O2 requirement but could also be COPD and systolic heart failure exacerbation. Enoxaparin started 07/08, Warfarin started 07/09. Patient admits to adult services that he will sell his needles and admits to myself that he will not administer lovenox injections. INR not therapeutic. Will need to investigate if patient willing to attend daily anti-coagulation clinic visits or if hospital stay until INR therapeutic and overlap of therapies. (3) SBO (small bowel obstruction) Status: AcuteAssessment/Plan: Cause of SBO present on admit is unknown but now resolved. Possibly due to hydrocodone treatment without adequate bowel care. Senna increased since admit, continue mirilax and docusate. Patient tolerating diet and having bowel movements. Pain improved (4) COPD (chronic obstructive pulmonary disease) Qualifiers: COPD type: unspecified COPD Qualifier Code: (J44.9) Chronic obstructive pulmonary disease, unspecified Status: AcuteAssessment/Plan: Increased O2 requirement and subjective SOB /, started steroids and azithromycin on 3. Continue oral prednisone and nebs, titrate off O2. Patient with O2 PRN from [facility]. He is not on chronic O2 therapy. With his COPD and CHF, he experienced acute respiratory failure, no evidence of chronic respiratory failure at this time but with patient's poor medication adherence, he will likely require supplemental continuous O2 int he future. (5) Hyperglycemia Status: AcuteAssessment/Plan: Steroid effect vs. unrecognized DM, check A1c, continue CBGs. Add insulin with diabetic diet. (6) Anemia Qualifiers: Other causes of anemia: other cause, not classified Status: Acute Assessment/Plan: Mild, dilutional. (7) SVT (supraventricular tachycardia) Status: AcuteAssessment/Plan: Asymptomatic run of SVT 3/3 a.m. No recurrence on metoprolol. (8) Abrasion of foot without infection Status: ChronicAssessment/Plan: Wound care. (9) HTN (hypertension) Qualifiers: Hypertension type: essential hypertension Qualifier Code: (I10) Essential (primary) hypertension Status: ChronicAssessment/Plan: Moderate control on metoprolol, amlodipine, furosemide, add lisinopril. (10) AAA (abdominal aortic aneurysm) Qualifiers: Presence of rupture: without rupture Qualifier Code: (I71.4) Abdominal aortic aneurysm, without rupture Status: ChronicAssessment/Plan: Chronic with occlusion and collateral circulation, at baseline. (11) Chronic low back pain Qualifiers: Back pain laterality: unspecified Sciatica presence: unspecified whether sciatica present Qualifier Code: (M54.5) Low back pain Status: ChronicAssessment/Plan: Chronic pain at baseline. Back on PO hydrocodone and bowel regimen to prevent constipation/obstruction. (12) ETOHism Status: ChronicAssessment/Plan: In remission since admit to last month. VTE Prophylaxis: Treatment dose enoxaparin and warfarin. Disposition: Possible return to SNF vs. AFC. Appears close to being stable for discharge but will need a PCP and close f/u for multiple new issues. Will need INR testing, f/u chest CT, determination if he can be managed with oral diabetic medication when off of prednisone. After consult with adult services yesterday, he is returning to his tent. Refusing adult foster care or other facility. He will sell needles if DC'd with injection medication.
[2016-07-12] MEDS ORDERED: WARFARIN SODIUM 7.5 MG TABLET PO SCH (16:00)
[2016-07-12] MEDS: METFORMIN HCL 850 MG TABLET PO SCH (16:46)
[2016-07-12] MEDS: ENOXAPARIN SODIUM 150 MG/ML SYRINGE SUB-Q SCH (21:12)
[2016-07-12] MEDS: LOVASTATIN 20 MG TABLET PO SCH (21:12)
[2016-07-12] MEDS: LORAZEPAM 0.5 MG TABLET PO PRN (22:39)
[2016-07-13] MEDS: ALBUTEROL NEB 2.5 MG/3 ML VIAL.NEB NEB PRN ×2 (00:21→05:11)
[2016-07-13] MEDS: HYDROCODONE/ACETAMINOPHEN 5/325MG TABLET PO PRN ×4 (05:04→21:13)
[2016-07-13] MEDS: INSULIN ASPART (DOSE) 100 UNITS/1 ML SUB-Q PRN ×2 (07:14→17:11)
[2016-07-13 07:16] LABS: CALCIUM 8.8 mg/dL (8.6-10.3); MAGNESIUM 1.9 mg/dL (1.9-2.7)
[2016-07-13 07:20] LABS: INR 1.59; PROTHROMBIN TIME 17.1 SECONDS (9.3-11.4)
[2016-07-13] MEDS: ALBUTEROL/IPRATROPIUM 2.5/0.5 MG 3 ML/EACH DOSE NEB SCH ×4 (08:15→20:24)
[2016-07-13] MEDS: SENNA/DOCUSATE SODIUM 8.6/50 MG EACH TABLET PO SCH ×2 (09:00→20:52)
[2016-07-13] MEDS: REMOVE PATCH 1 EACH UNIT TD SCH (09:00)
[2016-07-13] MEDS: LORATADINE 10 MG TABLET PO SCH (09:16)
[2016-07-13] MEDS: PREDNISONE 20 MG TABLET PO SCH (09:16)
[2016-07-13] MEDS: NICOTINE 14 MG PATCH 1 EACH TD SCH (09:16)
[2016-07-13] MEDS: POTASSIUM CHLORIDE 20 MEQ TAB.PRT.SR PO SCH ×2 (09:17→20:52)
[2016-07-13] MEDS: AMLODIPINE BESYLATE 5 MG TABLET PO SCH (09:17)
[2016-07-13] MEDS: LISINOPRIL 10 MG TABLET PO SCH (09:17)
[2016-07-13] MEDS: PANTOPRAZOLE 40 MG TABLET DR PO SCH (09:17)
[2016-07-13] MEDS: TIOTROPIUM BROMIDE 18 MCG 5 CAP/INHALER IH SCH (09:18)
[2016-07-13] MEDS: GUAIFENESIN 600 MG TABLET.DR PO SCH ×2 (09:18→20:52)
[2016-07-13] MEDS: FUROSEMIDE 20 MG TABLET PO SCH ×2 (09:18→15:17)
[2016-07-13] MEDS: BENZONATATE 100 MG CAPSULE PO SCH ×3 (09:18→20:52)
[2016-07-13] MEDS: METFORMIN HCL 850 MG TABLET PO SCH ×2 (09:18→16:31)
[2016-07-13] MEDS: MENTHOL/CETYLPYRD 1 EACH LOZENGE PO PRN (09:36)
[2016-07-13] MEDS: POLYETHYLENE GLYCOL 3350 17 G POWD.SUSP PO SCH (09:45)
--- NOTE | 2016-07-13 10:48 | PDOC43 ---
- Subjective Chief Complaint: Abd Distension, SOB Subjective: Reports Tolerating Diet Well, Denies Shortness of Breath, Denies Chest Pain, Denies Fever - Objective Vital Signs Temperature 97.8 F 07/13/16 07:06 Pulse Rate 78 07/13/16 08:15 Respiratory Rate 18 07/13/16 08:15 Blood Pressure 162/82 07/13/16 07:06 O2 Saturation by Pulse Oximetry 90 07/13/16 08:15 Oxygen Delivery Method Room Air Oxygen Flow Rate 0 Intake and Output 07/12/16 07/13/16 07/14/16 06:59 06:59 06:59 Intake Total 1540 2009 Output Total 2450 1575 Balance -910 435 General: Alert, Cooperative, No Acute Distress HEENT: Mucous membr. moist/pink Lungs: Clear to Auscultation Bilaterally Cardiovascular: Regular Rate and Rhythm Abdomen: Soft, Normal Bowel Sounds, Non-Distended, No Tenderness Extremities: No Edema Skin: Warm, Dry, Intact Laboratory 07/09/16 05:30 07/13/16 06:15 07/13/16 07/13/16 07/12/16 07:07 06:15 21:11 PT 17.1 H BUN 27 H POC Capillary Glucose 182 H 139 H 07/12/16 07/12/16 18:22 12:51 PT BUN POC Capillary Glucose 251 H 171 H Current Medications: Current meds reviewed in EMR. - Problems: Assessment/Plan (1) CHF (congestive heart failure) Qualifiers: Congestive heart failure type: combined Congestive heart failure chronicity: acute on chronic Qualifier Code: (I50.43) Acute on chronic combined systolic (congestive) and diastolic (congestive) heart failure Status: AcuteAssessment/Plan: ECHO today demonstrates EF of 45% but incomplete exam. Clinically has combined syst/diast HF with acute on chronic exacerbation. Improving with diuresis and fluid restriction. Continue norvasc and furosemide , and lisinopril. Metoprolol stopped due to bradycardia (2) Pulmonary embolism Qualifiers: Pulmonary embolism type: other Chronicity: acute Acute cor pulmonale presence: with acute cor pulmonale Qualifier Code: (I26.09) Other pulmonary embolism with acute cor pulmonale Status: AcuteAssessment/Plan: Small PE on chest CTA. May have acute cor pulmonale contributing to acute increase in O2 requirement but could also be COPD and systolic heart failure exacerbation. Enoxaparin started 07/08, Warfarin started 07/09. Patient admits to adult services that he will sell his needles and admits to myself that he will not administer lovenox injections. INR not therapeutic. Will need to investigate if patient willing to attend daily anti-coagulation clinic visits or if hospital stay until INR therapeutic and overlap of therapies. (3) COPD (chronic obstructive pulmonary disease) Qualifiers: COPD type: unspecified COPD Qualifier Code: (J44.9) Chronic obstructive pulmonary disease, unspecified Status: AcuteAssessment/Plan: Increased O2 requirement and subjective SOB 07/08, started steroids and azithromycin on 07/08. Continue oral prednisone and nebs, titrate off O2. Patient with O2 PRN from [facility]. He is not on chronic O2 therapy. With his COPD and CHF, he experienced acute respiratory failure, no evidence of chronic respiratory failure at this time but with patient's poor medication adherence, he will likely require supplemental continuous O2 int he future. (4) Anemia Qualifiers: Other causes of anemia: other cause, not classified Status: Acute Assessment/Plan: Mild, dilutional. (5) SVT (supraventricular tachycardia) Status: AcuteAssessment/Plan: Asymptomatic run of SVT 07/08 a.m. No recurrence on metoprolol, but metoprolol stopped on 07/12 due to bradycardia. Consider lower dose if recurs (6) Abrasion of foot without infection Status: ChronicAssessment/Plan: Wound care. (7) HTN (hypertension) Qualifiers: Hypertension type: essential hypertension Qualifier Code: (I10) Essential (primary) hypertension Status: ChronicAssessment/Plan: Moderate control on amlodipine, furosemide, and lisinopril. VTE Prophylaxis: Treatment dose enoxaparin and warfarin. Disposition: Will need INR testing, f/u chest CT. After consult with adult services yesterday, he is returning to his tent. Refusing adult foster care or other facility. He will sell needles if DC'd with injection medication. Probable discharge in am.
[2016-07-13] MEDS: NICOTINE POLACRILEX 2 MG LOZENGE PO PRN ×2 (12:07→15:17)
[2016-07-13] MEDS ORDERED: WARFARIN SODIUM PO SCH ×2 (16:00)
[2016-07-13] MEDS: ENOXAPARIN SODIUM 150 MG/ML SYRINGE SUB-Q SCH (20:51)
[2016-07-13] MEDS: LOVASTATIN 20 MG TABLET PO SCH (20:53)
[2016-07-13] MEDS: LORAZEPAM 0.5 MG TABLET PO PRN (21:13)
[2016-07-14] MEDS: HYDROCODONE/ACETAMINOPHEN 5/325MG TABLET PO PRN ×4 (02:00→20:58)
[2016-07-14] MEDS: ALBUTEROL NEB 2.5 MG/3 ML VIAL.NEB NEB PRN ×2 (02:19→06:18)
[2016-07-14 07:34] LABS: INR 2.69; PROTHROMBIN TIME 29.7 SECONDS (9.3-11.4)
[2016-07-14] MEDS: NICOTINE POLACRILEX 2 MG LOZENGE PO PRN ×3 (07:39→19:44)
[2016-07-14] MEDS: ALBUTEROL/IPRATROPIUM 2.5/0.5 MG 3 ML/EACH DOSE NEB SCH ×4 (07:42→20:24)
[2016-07-14] MEDS: LORATADINE 10 MG TABLET PO SCH (08:50)
[2016-07-14] MEDS: METFORMIN HCL 850 MG TABLET PO SCH ×2 (08:50→17:38)
[2016-07-14] MEDS: POTASSIUM CHLORIDE 20 MEQ TAB.PRT.SR PO SCH ×2 (08:50→20:58)
[2016-07-14] MEDS: FUROSEMIDE 20 MG TABLET PO SCH ×2 (08:51→16:11)
[2016-07-14] MEDS: POLYETHYLENE GLYCOL 3350 17 G POWD.SUSP PO SCH (08:51)
[2016-07-14] MEDS: GUAIFENESIN 600 MG TABLET.DR PO SCH ×2 (08:51→20:58)
[2016-07-14] MEDS: NICOTINE 14 MG PATCH 1 EACH TD SCH (08:51)
[2016-07-14] MEDS: AMLODIPINE BESYLATE 5 MG TABLET PO SCH (08:53)
[2016-07-14] MEDS: PANTOPRAZOLE 40 MG TABLET DR PO SCH (08:54)
[2016-07-14] MEDS: LISINOPRIL 10 MG TABLET PO SCH (08:54)
[2016-07-14] MEDS: PREDNISONE 20 MG TABLET PO SCH (08:54)
[2016-07-14] MEDS: REMOVE PATCH 1 EACH UNIT TD SCH (08:54)
[2016-07-14] MEDS: BENZONATATE 100 MG CAPSULE PO SCH ×3 (08:55→20:58)
[2016-07-14] MEDS: SENNA/DOCUSATE SODIUM 8.6/50 MG EACH TABLET PO SCH ×2 (08:55→20:58)
[2016-07-14] MEDS: TIOTROPIUM BROMIDE 18 MCG 5 CAP/INHALER IH SCH (09:07)
--- NOTE | 2016-07-14 12:48 | PDOC43 ---
- Subjective Chief Complaint: Abd Distension, SOB Patient reports still with some reduced respiratory status; reports decreased activity tolerance, but PT/OT had suggested he was doing well enough that they didn't need to see him. Cough still, but not productive. Stomach feeling better, but wanted to have brown sugar on oatmeal. - Objective Vital Signs Temperature 98.0 F 07/14/16 11:40 Pulse Rate 67 07/14/16 12:03 Respiratory Rate 18 07/14/16 12:03 Blood Pressure 190/76 07/14/16 11:40 O2 Saturation by Pulse Oximetry 92 07/14/16 12:03 Oxygen Delivery Method Room Air Oxygen Flow Rate 0 Vital Signs Last 12 Hours Temp Pulse Resp BP Pulse Ox 07/14/16 12:03 67 18 92 07/14/16 11:40 98.0 F 84 20 190/76 93 07/14/16 10:00 93 07/14/16 08:00 84 93 07/14/16 07:47 77 18 92 07/14/16 07:46 77 18 07/14/16 07:32 98.6 F 64 20 158/78 93 07/14/16 07:23 20 07/14/16 06:18 84 20 07/14/16 04:00 97.6 F 71 20 139/59 91 07/14/16 02:30 14 07/14/16 02:20 68 20 Intake and Output 07/12/16 07/13/16 07/14/16 23:59 23:59 23:59 Intake Total 1710 1860 Output Total 1600 2122 1000 Balance 110 -262 -1000 General: Alert, Cooperative HEENT: Atraumatic Lungs: Other (sl coarse breath sounds bilat, occasional cough.) Cardiovascular: Regular Rate and Rhythm Abdomen: Soft, No Tenderness, No Rebounding, No Involuntary Guarding, No Masses , No Bruits Extremities: No Edema Skin: Normal Color, Other (numerous scars on arms) Neurological: Normal Speech Psych/Mental Status: Other (casual demeanor, "hippie like") Laboratory 07/09/16 05:30 07/13/16 06:15 07/14/16 07/14/16 07/14/16 12:12 07:17 06:10 PT 29.7 H POC Capillary Glucose 165 H 127 H 07/13/16 07/13/16 21:30 17:02 PT POC Capillary Glucose 157 H 192 H Laboratory Tests 07/09/16 07/10/16 07/11/16 15:45 05:45 05:30 INR 0.98 1.00 1.09 07/12/16 07/13/16 07/14/16 05:30 06:15 06:10 INR 1.35 1.59 2.69 Current Medications: Current meds reviewed in EMR. Active Medications Acetaminophen (Tylenol) 650 mg PO Q6H PRN PRN Reason: Pain Last Admin: 07/10/16 06:08 Dose: 650 mg Acetaminophen/Hydrocodone Bitart (Aurora 5/325) 1 tab PO Q4H PRN PRN Reason: Pain Last Admin: 07/14/16 06:09 Dose: 1 tab Albuterol Sulfate (Ventolin Inhalation Solution (Dose)) 2.5 mg NEB Q2H PRN PRN Reason: Wheezing Last Admin: 07/14/16 06:18 Dose: 2.5 mg Albuterol/Ipratropium (Duoneb) 3 ml NEB 08,12,16,20 [facility] Last Admin: 07/14/16 12:03 Dose: 3 ml Amlodipine Besylate (Norvasc) 10 mg PO DAILY [facility] Last Admin: 07/14/16 08:53 Dose: 10 mg Benzocaine/Butamben/Tetracaine HCl (Cetacaine (Bottle)) 1 applic PO Q2H PRN PRN Reason: Pain Last Admin: 07/08/16 17:49 Dose: 1 applic Benzocaine/Menthol (Cepacol) 1 each PO PRN PRN PRN Reason: Sore Throat Last Admin: 07/13/16 09:36 Dose: 1 each Benzonatate (Tessalon Perles) 100 mg PO TID [facility] Last Admin: 07/14/16 08:55 Dose: 100 mg Bisacodyl (Dulcolax) 10 mg MS DAILY PRN PRN Reason: Constipation Calcium Carbonate/Glycine (Tums) 500 mg PO BID PRN PRN Reason: Indigestion Enoxaparin Sodium (Lovenox) 130 mg SUB-Q Q24H [facility] Last Admin: 07/13/16 20:51 Dose: 130 mg Furosemide (Lasix) 20 mg PO [id number] [facility] Last Admin: 07/14/16 08:51 Dose: 20 mg Guaifenesin (Mucinex) 600 mg PO BID [facility] Last Admin: 07/14/16 08:51 Dose: 600 mg Sodium Chloride (Sodium Chloride 0.9%) 100 mls @ 25 mls/hr IV PRN PRN PRN Reason: Flush Last Admin: 07/10/16 14:05 Dose: 25 mls/hr Insulin Aspart (Novolog (Dose)) 0 units SUB-Q WM/BEDTIME PRN; Protocol PRN Reason: Blood Sugar > Last Admin: 07/13/16 17:11 Dose: 3 units Lisinopril (Prinivil) 10 mg PO DAILY [facility] Last Admin: 07/14/16 08:54 Dose: 10 mg Loratadine (Claritin) 10 mg PO DAILY [facility] Last Admin: 07/14/16 08:50 Dose: 10 mg Lorazepam (Ativan) 0.5 mg PO Q6H PRN PRN Reason: Anxiety Last Admin: 07/13/16 21:13 Dose: 0.5 mg Lovastatin (Mevacor) 20 mg PO BEDTIME [facility] Last Admin: 07/13/16 20:53 Dose: 20 mg Metformin HCl (Glucophage) 850 mg PO BIDWM [facility] Last Admin: 07/14/16 08:50 Dose: 850 mg Miscellaneous (Coumadin Per Pharmacy) 1 each PO PERPHARMACY [facility] Miscellaneous (Remove Patch) 1 each TD X1 [facility] Last Admin: 07/14/16 08:54 Dose: 1 each Nicotine (Nicoderm Cq) 1 each TD DAILY [facility] Last Admin: 07/14/16 08:51 Dose: 1 each Nicotine Polacrilex (Commit Lozenge) 2 mg PO Q1H PRN PRN Reason: Withdrawal Symptoms Last Admin: 07/14/16 07:39 Dose: 2 mg Ondansetron HCl (Zofran) 4 mg IV Q3H PRN PRN Reason: Nausea/Vomiting Last Admin: 07/08/16 14:03 Dose: 4 mg Pantoprazole Sodium (Protonix) 40 mg PO DAILY [facility] Last Admin: 07/14/16 08:54 Dose: 40 mg Petrolatum/Paraffin/Mineral Oil (Blistex) 1 each TP PRN PRN PRN Reason: Dry and/or chapped lips Polyethylene Glycol/Electrolytes (Miralax) 17 g PO DAILY [facility] Last Admin: 07/14/16 08:51 Dose: Not Given Potassium Chloride (K-Dur) 20 meq PO BID [facility] Last Admin: 07/14/16 08:50 Dose: 20 meq Prednisone (Prednisone) 40 mg PO QAM [facility] Stop: 07/15/16 08:59 Last Admin: 07/14/16 08:54 Dose: 40 mg Senna/Docusate Sodium (Senokot-S) 1 each PO BID [facility] Last Admin: 07/14/16 08:55 Dose: Not Given Simethicone (Mylicon) 80 mg PO QID PRN PRN Reason: Indigestion Sodium Chloride (Normal Saline 10ml Flush) 10 ml IV PRN PRN PRN Reason: See Protocol Last Admin: 07/10/16 14:06 Dose: 10 ml Sodium Chloride (Normal Saline 10ml Flush) 10 ml IV Q8HR [facility] Last Admin: 07/14/16 08:53 Dose: 10 ml Tiotropium [place] (Spiriva Handihaler) 1 cap IH DAILY [facility] Last Admin: 07/14/16 09:07 Dose: 1 cap - Problems: Assessment/Plan (1) CHF (congestive heart failure) Qualifiers: Congestive heart failure type: combined Congestive heart failure chronicity: acute on chronic Qualifier Code: (I50.43) Acute on chronic combined systolic (congestive) and diastolic (congestive) heart failure Status: AcuteAssessment/Plan: ECHO this hospitalization demonstrated EF of 45% but incomplete exam. Clinically has combined syst/diast HF with acute on chronic exacerbation; now appears stable. Improved with diuresis and fluid restriction. Continue norvasc and furosemide, and lisinopril. Metoprolol stopped due to bradycardia (2) Pulmonary embolism Qualifiers: Pulmonary embolism type: other Chronicity: acute Acute cor pulmonale presence: with acute cor pulmonale Qualifier Code: (I26.09) Other pulmonary embolism with acute cor pulmonale Status: AcuteAssessment/Plan: Small PE on chest CTA. May have acute cor pulmonale contributing to acute increase in O2 requirement but could also be COPD and systolic heart failure exacerbation. Enoxaparin started 07/08, Warfarin started 3. Will need considerable support if to manage on coumadin. Patient admitted to adult services that he will sell his needles and admitted previously that he will not administer lovenox injections. INR now therapeutic, needing to overlap some with enoxaparin. Will need to investigate if other oral anticoagulant possible, as warfarin likely would require more than he can do. (3) SBO (small bowel obstruction) Status: AcuteAssessment/Plan: Cause of SBO present on admit, cause is unknown but now resolved. Possibly due to hydrocodone treatment without adequate bowel care. Senna increased since admit, continue miralax and docusate. Patient tolerating diet and having bowel movements. Pain improved (4) ETOHism Status: ChronicAssessment/Plan: Reported in remission since admit to last month. VTE Prophylaxis: Treatment dose enoxaparin and warfarin. Disposition: Will need INR testing, f/u chest CT. After consult with adult services, he was initially going to return to his tent. Daughter was reported to be able to take him, but pt doesn't want to bother her. Initially refused adult foster care or other facility, but now asking for SNF/ ICF, but will not qualify. He mentions some other places where he might be able to stay with friends, but doesn't have a custodial plan.
[2016-07-14] MEDS ORDERED: WARFARIN SODIUM 1 MG TABLET ONE (15:51)
[2016-07-14] MEDS ORDERED: WARFARIN SODIUM 5 MG TABLET ONE (15:51)
[2016-07-14] MEDS ORDERED: WARFARIN SODIUM PO SCH ×2 (16:00)
[2016-07-14] MEDS ORDERED: WARFARIN SODIUM PO ONE ×2 (16:00)
[2016-07-14] MEDS: INSULIN ASPART (DOSE) 100 UNITS/1 ML SUB-Q PRN ×2 (17:39→21:08)
[2016-07-14] MEDS: LOVASTATIN 20 MG TABLET PO SCH (20:58)
[2016-07-14] MEDS: ENOXAPARIN SODIUM 150 MG/ML SYRINGE SUB-Q SCH (20:58)
[2016-07-14] MEDS: LORAZEPAM 0.5 MG TABLET PO PRN (21:09)
[2016-07-15] MEDS: HYDROCODONE/ACETAMINOPHEN 5/325MG TABLET PO PRN ×4 (01:27→14:22)
[2016-07-15] MEDS: ALBUTEROL NEB 2.5 MG/3 ML VIAL.NEB NEB PRN (01:33)
[2016-07-15 04:20] VITALS: BP 137/52
[2016-07-15 06:09] LABS: ABSOLUTE NEUTROPHIL COUNT 9.3 K/mm3 (1.8-7.7); BASO % 0.2 % (0.2-1.0); EOS # 0.1 (0.0-0.5); EOS % 0.5 % (0.9-2.9); HEMATOCRIT 43.5 % (32.0-52.0); HEMOGLOBIN 14.6 gm/l (14.0-18.0); IMM NEUT # 0.1 K/mm3 (0-0.2); IMM NEUT% 0.9 % (0-1); LYMPH # 2.7 (1.0-4.8); LYMPH % 20.7 % (15-45); MEAN CELL VOLUME 91.4 fl (80.0-94.0); MEAN CORPUSCULAR HEMOGLOBIN 30.7 pg (27.0-31.0); MEAN CORPUSCULAR HGB CONC 33.6 g/dl (33.0-37.0); MEAN PLATELET VOLUME 9.3 fl (7.4-10.4); MONO % 7.8 % (4-12); NEUT % 69.9 % (43-75); PLATELET COUNT 272 K/mm3 (130-400); RED CELL DISTRIBUTION WIDTH 12.3 % (11.5-14.5)
[2016-07-15] MEDS: NICOTINE POLACRILEX 2 MG LOZENGE PO PRN ×2 (06:25→08:07)
[2016-07-15 06:31] LABS: INR 3.5; PROTHROMBIN TIME 39.3 SECONDS (9.3-11.4)
[2016-07-15] MEDS: ALBUTEROL/IPRATROPIUM 2.5/0.5 MG 3 ML/EACH DOSE NEB SCH ×2 (07:32→12:56)
--- NOTE | 2016-07-15 10:10 | PDOC43 ---
- Subjective Chief Complaint: Abd Distension, SOB Patient reports eating breakfast well, had two plates, reports it was delicious and was happy that the diet was changed to regular. Breathing had generally been ok, but still on O2, although had good sats on RA previously. He is also pleased about the option to have xarelto, not requiring lab draws. - Objective Vital Signs Temperature 98.4 F 07/15/16 04:00 Pulse Rate 70 07/15/16 07:33 Respiratory Rate 18 07/15/16 07:33 Blood Pressure 137/52 07/15/16 04:00 O2 Saturation by Pulse Oximetry 95 07/15/16 07:33 Oxygen Delivery Method Nasal Cannula Oxygen Flow Rate 2 Vital Signs Last 12 Hours Temp Pulse Resp BP Pulse Ox 07/15/16 07:33 70 18 95 07/15/16 04:00 98.4 F 76 18 137/52 89 07/15/16 01:33 74 14 95 07/15/16 01:00 18 07/14/16 23:59 98.1 F 98 18 147/59 92 Intake and Output 07/13/16 07/14/16 07/15/16 23:59 23:59 23:59 Intake Total 1860 960 480 Output Total 2122 2600 1000 Balance -333 -6823 -355 General: Alert, Cooperative, No Acute Distress HEENT: Atraumatic Lungs: Normal Air Movement, Other (sl coarse breath sounds, but air movement otherwise fairly good.) Cardiovascular: Regular Rate and Rhythm Abdomen: Soft, Normal Bowel Sounds, Non-Distended, Other (ate two complete breakfast plates) Extremities: No Edema Neurological: Other (appears to be at baseline) Psych/Mental Status: Other (usual affect,) Laboratory 07/15/16 05:30 07/15/16 07/15/16 07/14/16 07:59 05:30 21:02 PT 39.3 H POC Capillary Glucose 123 H 203 H 07/14/16 07/14/16 16:10 12:12 PT POC Capillary Glucose 263 H 165 H Current Medications: Current meds reviewed in EMR. Active Medications Acetaminophen (Tylenol) 650 mg PO Q6H PRN PRN Reason: Pain Last Admin: 07/10/16 06:08 Dose: 650 mg Acetaminophen/Hydrocodone Bitart ([place] 5/325) 1 tab PO Q4H PRN PRN Reason: Pain Last Admin: 07/15/16 06:25 Dose: 1 tab Albuterol Sulfate (Ventolin Inhalation Solution (Dose)) 2.5 mg NEB Q2H PRN PRN Reason: Wheezing Last Admin: 07/15/16 01:33 Dose: 2.5 mg Albuterol/Ipratropium (Duoneb) 3 ml NEB 08,12,16,20 [facility] Last Admin: 07/15/16 07:32 Dose: 3 ml Amlodipine Besylate (Norvasc) 10 mg PO DAILY [facility] Last Admin: 07/14/16 08:53 Dose: 10 mg Benzocaine/Butamben/Tetracaine HCl (Cetacaine (Bottle)) 1 applic PO Q2H PRN PRN Reason: Pain Last Admin: 07/08/16 17:49 Dose: 1 applic Benzocaine/Menthol (Cepacol) 1 each PO PRN PRN PRN Reason: Sore Throat Last Admin: 07/13/16 09:36 Dose: 1 each Benzonatate (Tessalon Perles) 100 mg PO TID [facility] Last Admin: 07/14/16 20:58 Dose: 100 mg Bisacodyl (Dulcolax) 10 mg LA DAILY PRN PRN Reason: Constipation Calcium Carbonate/Glycine (Tums) 500 mg PO BID PRN PRN Reason: Indigestion Enoxaparin Sodium (Lovenox) 130 mg SUB-Q Q24H [facility] Last Admin: 07/14/16 20:58 Dose: 130 mg Furosemide (Lasix) 20 mg PO [id number] [facility] Last Admin: 07/14/16 16:11 Dose: 20 mg Guaifenesin (Mucinex) 600 mg PO BID [facility] Last Admin: 07/14/16 20:58 Dose: 600 mg Sodium Chloride (Sodium Chloride 0.9%) 100 mls @ 25 mls/hr IV PRN PRN PRN Reason: Flush Last Admin: 07/10/16 14:05 Dose: 25 mls/hr Insulin Aspart (Novolog (Dose)) 0 units SUB-Q WM/BEDTIME PRN; Protocol PRN Reason: Blood Sugar > Last Admin: 07/14/16 21:08 Dose: 2 units Lisinopril (Prinivil) 10 mg PO DAILY [facility] Last Admin: 07/14/16 08:54 Dose: 10 mg Loratadine (Claritin) 10 mg PO DAILY [facility] Last Admin: 07/14/16 08:50 Dose: 10 mg Lorazepam (Ativan) 0.5 mg PO Q6H PRN PRN Reason: Anxiety Last Admin: 07/14/16 21:09 Dose: 0.5 mg Lovastatin (Mevacor) 20 mg PO BEDTIME [facility] Last Admin: 07/14/16 20:58 Dose: 20 mg Metformin HCl (Glucophage) 850 mg PO BIDWM [facility] Last Admin: 07/14/16 17:38 Dose: 850 mg Miscellaneous (Coumadin Per Pharmacy) 1 each PO PERPHARMACY [facility] Miscellaneous (Remove Patch) 1 each TD X1 [facility] Last Admin: 07/14/16 08:54 Dose: 1 each Nicotine (Nicoderm Cq) 1 each TD DAILY [facility] Last Admin: 07/14/16 08:51 Dose: 1 each Nicotine Polacrilex (Commit Lozenge) 2 mg PO Q1H PRN PRN Reason: Withdrawal Symptoms Last Admin: 07/15/16 08:07 Dose: 2 mg Ondansetron HCl (Zofran) 4 mg IV Q3H PRN PRN Reason: Nausea/Vomiting Last Admin: 07/08/16 14:03 Dose: 4 mg Pantoprazole Sodium (Protonix) 40 mg PO DAILY [facility] Last Admin: 07/14/16 08:54 Dose: 40 mg Petrolatum/Paraffin/Mineral Oil (Blistex) 1 each TP PRN PRN PRN Reason: Dry and/or chapped lips Polyethylene Glycol/Electrolytes (Miralax) 17 g PO DAILY [facility] Last Admin: 07/14/16 08:51 Dose: Not Given Potassium Chloride (K-Dur) 20 meq PO BID [facility] Last Admin: 07/14/16 20:58 Dose: 20 meq Senna/Docusate Sodium (Senokot-S) 1 each PO BID [facility] Last Admin: 07/14/16 20:58 Dose: 1 each Simethicone (Mylicon) 80 mg PO QID PRN PRN Reason: Indigestion Sodium Chloride (Normal Saline 10ml Flush) 10 ml IV PRN PRN PRN Reason: See Protocol Last Admin: 07/10/16 14:06 Dose: 10 ml Sodium Chloride (Normal Saline 10ml Flush) 10 ml IV Q8HR [facility] Last Admin: 07/15/16 01:27 Dose: 10 ml Tiotropium [place] (Spiriva Handihaler) 1 cap IH DAILY [facility] Last Admin: 07/14/16 09:07 Dose: 1 cap - Problems: Assessment/Plan (1) CHF (congestive heart failure) Qualifiers: Congestive heart failure type: combined Congestive heart failure chronicity: acute on chronic Qualifier Code: (I50.43) Acute on chronic combined systolic (congestive) and diastolic (congestive) heart failure Status: AcuteAssessment/Plan: attributed to uncontrolled hypertension. BP appears well controlled now. ECHO this hospitalization demonstrated EF of 45% but incomplete exam. Clinically has combined syst/diast HF with acute on chronic exacerbation; now appears stable. Improved with diuresis and fluid restriction. Continue norvasc and furosemide, and lisinopril, planning change to losartan. Metoprolol stopped due to bradycardia (2) Pulmonary embolism Qualifiers: Pulmonary embolism type: other Chronicity: acute Acute cor pulmonale presence: with acute cor pulmonale Qualifier Code: (I26.09) Other pulmonary embolism with acute cor pulmonale Status: AcuteAssessment/Plan: Small PE on chest CTA. May have acute cor pulmonale contributing to acute increase in O2 requirement but could also be COPD and systolic heart failure exacerbation. Enoxaparin started 3, Warfarin started 3. Do not think patient will be able to safely manage warfarin. Xarelto planned for DC. Start will be suboptimal with only qd dosing, but feel this is necessary to simplify regimen Patient admitted to adult services that he will sell his needles and admitted previously that he will not administer lovenox injections. INR now therapeutic, but will be switching to xarelto. (3) SBO (small bowel obstruction) Status: ResolvedAssessment/Plan: Cause of SBO present on admit, cause is unknown but now resolved. Possibly due to hydrocodone treatment without adequate bowel care. Senna increased since admit, continue miralax and docusate. Patient tolerating diet and having bowel movements. Pain improved. Eating well now. (4) ETOHism Status: ChronicAssessment/Plan: Reported in remission since admit to last month. No withdrawal seen here (5) COPD (chronic obstructive pulmonary disease) Qualifiers: COPD type: unspecified COPD Qualifier Code: (J44.9) Chronic obstructive pulmonary disease, unspecified Status: AcuteAssessment/Plan: Increased O2 requirement and subjective SOB /, started steroids and azithromycin on 07/08. Finish oral prednisone and nebs, check ambulation with RA. Patient with O2 PRN from [facility]. He is not on chronic O2 therapy. With his COPD and CHF, he experienced acute respiratory failure, now improved. Pt may need chronic O2 therapy at some point, but pt's current living situation and smoking would effectively preclude use. (6) HTN (hypertension) Qualifiers: Hypertension type: essential hypertension Qualifier Code: (I10) Essential (primary) hypertension Status: ChronicAssessment/Plan: Fairly good control at this time. VTE Prophylaxis: Treatment dose enoxaparin and warfarin. Disposition: Will need INR testing, f/u chest CT - . Initially refused adult foster care or other facility, but then asked for SNF/ ICF, but will not qualify. He mentions some other places where he might be able to stay with friends, but doesn't have a medication tech plan. He also mentions a possible stay with friend [facility] today.
[2016-07-15] MEDS: LISINOPRIL 10 MG TABLET PO SCH (10:11)
[2016-07-15] MEDS: PANTOPRAZOLE 40 MG TABLET DR PO SCH (10:11)
[2016-07-15] MEDS: POTASSIUM CHLORIDE 20 MEQ TAB.PRT.SR PO SCH (10:11)
[2016-07-15] MEDS: FUROSEMIDE 20 MG TABLET PO SCH (10:12)
[2016-07-15] MEDS: LORATADINE 10 MG TABLET PO SCH (10:12)
[2016-07-15] MEDS: GUAIFENESIN 600 MG TABLET.DR PO SCH (10:12)
[2016-07-15] MEDS: AMLODIPINE BESYLATE 5 MG TABLET PO SCH (10:12)
[2016-07-15] MEDS: BENZONATATE 100 MG CAPSULE PO SCH (10:12)
[2016-07-15] MEDS: REMOVE PATCH 1 EACH UNIT TD SCH (10:13)
[2016-07-15] MEDS: SENNA/DOCUSATE SODIUM 8.6/50 MG EACH TABLET PO SCH (10:14)
[2016-07-15] MEDS: NICOTINE 14 MG PATCH 1 EACH TD SCH (10:18)
[2016-07-15] MEDS: METFORMIN HCL 850 MG TABLET PO SCH (10:18)
[2016-07-15] MEDS: POLYETHYLENE GLYCOL 3350 17 G POWD.SUSP PO SCH (10:18)
[2016-07-15] MEDS: TIOTROPIUM BROMIDE 18 MCG 5 CAP/INHALER IH SCH (10:21)
[2016-07-15] MEDS ORDERED: ENOXAPARIN SODIUM 150 MG/ML SYRINGE SUB-Q SCH (10:45)
[2016-07-15 11:45] LABS: ALB/GLOB RATIO 1.2 (>1.0); ALBUMIN 3.3 gm/dL (3.5-5.7); BLOOD UREA NITROGEN 33 mg/dL (7-25); BUN/CREATININE RATIO 37 (6-20); CALCIUM 9.1 mg/dL (8.6-10.3); GLOMERULAR FILTRATION RATE 85 mL/min (60-85)
[2016-07-15 11:46] LABS: ALT/SGPT 19 U/L (7-52)
--- NOTE | 2016-07-15 12:14 | DS ---
Luke Lopez DATE OF ADMISSION: 07/07/2016 DATE OF DISCHARGE: 06/17/2016 DISCHARGE DIAGNOSES: 1. Partial small bowel obstruction attributed to constipation and medications. 2. Congestive heart failure attributed to uncontrolled hypertension. 3. Hypertension now improved with medication. 4. Small pulmonary embolus seen on CTA. 5. Chronic obstructive pulmonary disease. 6. Right lower lung nodule 9 mm, follow up recommended in 2 to 3 months. 7. 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 8. History of atrial fibrillation. 9. Elevated glucose attributed to steroid use. 10. Homeless status. 11. Proteinuria attributed to chronic hypertension. 12. Atrial fibrillation with adequate rate control at this time. His beta irene was stopped due to bradycardia. 13. Ongoing smoking. PROCEDURES DONE: Abdomen and pelvic CT 07/07/2016 which showed partial small bowel obstruction with marked distention of the stomach of proximal small bowel up to 3.8 cm, chronic occlusion, thrombus formation of the abdominal aorta below the level of the renal arteries with reconstitution at the level of the common femoral arteries, 10 mm nodule in the right lower lobe of the lung. Patient had a CTA of the chest which showed small embolus posterior base lower segment right lower lobe, findings suggested cardiogenic pulmonary edema, nonspecific mediastinal lymphadenopathy, 9 mm nodular density right lower lung, atherosclerosis, infrarenal abdominal aortic aneurysm, and cholelithiasis without evidence of gross cholecystitis or biliary obstruction. Patient had an echocardiogram performed showing technically limited study, normal left ventricular dimension, severe left atrial enlargement, mild right ventricular dilatation, mild concentric left ventricular hypertrophy, mild global hypokinesis, ejection fraction estimated at 45%, trace tricuspid regurgitation, right ventricular systolic pressure suggesting mild pulmonary hypertension. REASON FOR ADMISSION: The patient is a 66-year-old male who is homeless. He had been in the hospital at [facility] for close to a month previously and was discharged in the week prior and sent to [facility]. He had been stable there for the next couple of days, but then he developed onset of abdominal distention and pain and was brought to the emergency room and worked up and found to have evidence of early small bowel obstruction. He had not had any recent surgeries. No fevers, no chills, no visual disturbance. He was referred to the hospitalist service for small bowel obstruction. Patient was treated with nasogastric tube and labs were monitored. His admission white count was 7.6, hemoglobin 15.8, platelets 365. INR 1.0. Chemistry profile showed a sodium 138, potassium 4.4, carbon dioxide 32, BUN 14, creatinine 0.8, glucose 141. Liver enzymes normal. Troponin less than 0.01. Magnesium 1.9. TSH 0.42. Urinalysis did show 3+ protein. Patient had good response to nasogastric placement and had resolution of small obstruction. He had consultations with the social work and on review of the CT angiogram of the chest started on anticoagulation enoxaparin and warfarin. He received supplemental oxygen and had slow progress in improvement in his respiratory status receiving azithromycin and steroids for his chronic obstructive pulmonary disease. Patient's placement presented several different problems being homeless and refusing to return to a care facility and it was felt at this point he would not qualify for any further skilled care. There was also concern about his ability to follow up with anticoagulation. He had refused to enoxaparin and it was concerning that his management of warfarin would be very difficult with his homeless status and his prior history of irregular medication compliance. Patient's blood pressure improved during hospital stay, it had initially been 184/94 on admission and was 137/52 by the time of discharge. He had varying saturations, but generally was able to tolerate being on room air. He was also note felt to be a good candidate for home oxygen therapy with his social status and smoking history. He improved and felt to reach maximum benefit of hospitalization by 07/15/2016. Care mangers were able to clarify that Xarelto would be an option for him in regards to his pulmonary embolus and his atrial fibrillation and so will be started on this at the time of discharge. DISCHARGE MEDICATIONS: Are anticipated to be: 1. Spiriva 18 mcg inhaled daily. 2. Xarelto 20 mg by mouth every morning understanding that this start to the medicine is not optimal, but would be simple once a day. 3. Potassium chloride is listed as 20 mEq twice daily. 4. Protonix 40 mg daily. 5. Metformin 850 mg by mouth twice daily with meals. 6. Lovastatin 20 mg by mouth at bedtime. 7. Losartan 50 mg by mouth daily. 8. Furosemide 20 mg by mouth twice daily. 9. Amlodipine 10 mg by mouth daily. 10. Albuterol 2.5 mg inhaled every 4 hours as needed. DIET: He was resistant to use of a diabetic diet, so will be discharged on a ad kuldip diet. ACTIVITY: Will as tolerated although, he does have limited activity tolerance. FOLLOW UP: Requested with Dr. Luis M Green on 07/22/2016 at 1:15 p.m. JOB: [id number] CC: Dr. Luis M Green in [place] who he is going to be following up with on 07/22/2016
== END 2016-07-15 15:25 | disposition home or self-care (01) | DRG 388 ==
LOC: ED 12:40 → MS 15:49
PROVIDERS: ADMIT Family Medicine; ATTEND Family Medicine
DX: K56.60 Unspecified intestinal obstruction (principal); I50.33 Acute on chronic diastolic (congestive) heart failure; I74.09 Other arterial embolism and thrombosis of abdominal aorta; I47.1 Supraventricular tachycardia; R91.1 Solitary pulmonary nodule; J44.9 Chronic obstructive pulmonary disease, unspecified; S90.819A Abrasion, unspecified foot, initial encounter; I71.4 Abdominal aortic aneurysm, without rupture; M54.5 Low back pain; G89.29 Other chronic pain; F10.21 Alcohol dependence, in remission; I11.0 Hypertensive heart disease with heart failure; D64.9 Anemia, unspecified; I48.91 Unspecified atrial fibrillation; T38.0X5A Adverse effect of glucocorticoids and synthetic analogues, initial encounter; Z59.0 Homelessness; R80.9 Proteinuria, unspecified; F17.210 Nicotine dependence, cigarettes, uncomplicated